=== PATIENT | female | born 1945 | race Caucasian/White ===

== ENCOUNTER 2019-03-18 21:56 | Emergency (ER) | payer MEDICARE, MEDICAID, SELFPAY ==
[2019-03-18 21:57] VITALS: BP 137/71; PULSE 78; RESP 13; TEMP 36.8; O2SAT 95; BMI 28.0
[2019-03-18 22:14] VITALS: RESP 16
--- NOTE | 2019-03-18 22:24 | ED.VIS.GEN ---
History of Present Illness Chief Complaint: Fall Informant: Patient Onset: Yesterday Context: Gradual Onset Timing: Continuous Current Severity: Moderate Maximum Severity: Moderate Narrative: The patient presents to the emergency department with facial bruising after fall. She states that yesterday, she was walking upper her basement stairs. She tripped and fell forward. She struck her forehead against the stair and she was wearing her glasses. She struck her nose and had some bleeding from the right naris. She states that overnight, the bleeding and bruising came out below her eyes. She denies headache, nausea, or visual change. She is not on anticoagulants. The only medication that she takes is thyroid replacement. She was just concerned with the bruising and thought that she should be evaluated. Prior similar symptoms: No Recent Illness/Hospitalization: No Past Medical History - Allergies and Home Meds Allergies/Adverse Reactions: Allergies acetaminophen [From Midol] Adverse Reaction (Verified 03/18/19 22:02) Other buspirone HCl [From BuSpar] Adverse Reaction (Verified 03/18/19 22:02) Other epinephrine Adverse Reaction (Verified 03/18/19 22:02) Other menthol Adverse Reaction (Verified 03/18/19 22:02) Other pamabrom [From Midol] Adverse Reaction (Verified 03/18/19 22:02) Other pyrilamine maleate [From Midol] Adverse Reaction (Verified 03/18/19 22:02) Other Primary Care Physician: Verito Ayoub PA [Primary Care Provider] - Prior records reviewed: Yes Past Medical History: - - Hypothyroid Surgical History: no surgical history Smoking Status: Never smoker Review of Systems General: Denies: Chills, Fever, Sweats Eyes: Denies: Visual changes - bilaterally, Diplopia ENT: Denies: Rhinorrhea, Sore throat Cardiovascular: Denies: Chest pain, Palpitations Respiratory: Denies: Dyspnea, Cough, Dyspnea on exertion Gastrointestinal: Denies: Abdominal pain, Nausea, Vomiting, Diarrhea, Melena, Hematochezia Genitourinary: Denies: Dysuria, Hematuria, Frequency Musculoskeletal: Denies: Back pain, Extremity Pain Skin: Denies: Rash, Wounds Neurological: Denies: Headache, Weakness, Numbness Physical Exam Vital Signs/Narrative: Vital Signs Temp Pulse Resp BP Pulse Ox 03/18/19 22:14 16 03/18/19 21:57 98.2 F 78 13 137/71 H 95 Inital Vital Signs reviewed: Yes General: Well nourished, Well developed, No Acute Distress Head: Normocephalic, Atraumatic Eyes: Perrl, EOMI ENT: Moist mucous membranes, No rhinorrhea, - - There is contusion over the bridge of the nose but no obvious deformity. There is tenderness to palpation. No nasal septal hematoma. Midface stable. Neck: Supple, Nontender Cardiovascular: Regular rate, Regular rhythm, No murmurs Respiratory: No distress, CTA bilaterally, Chest nontender Abdomen: Soft, Nontender, Nondistended, Normal bowel sounds Back: Nontender, Normal Inspection Extremities: Nontender, No edema Skin: Normal color, No rash Neurological: Alert, Oriented x3, Cranial nerves II-XII grossly intact, Normal Strength, Normal Sensation Psychological: Normal affect, Normal Mood Diagnostic/Tx/Re-eval - Medical Decision Making The patient has no nasal septal hematoma. She has clinical evidence of a nasal fracture. I did obtain plain films which showed no evidence of displaced fracture. The patient was started on Afrin and will continue Tylenol. She will be discharged home. Impression 1. Closed nasal fracture ED Disposition - Plan for ED Patient: Disposition: Home or Assisted Living Instructions: FRACTURE, Nose (with X-Ray) Referrals: Verito Ayoub PA [Primary Care Provider] -
--- NOTE | 2019-03-18 22:25 | RAD_ITS ---
STUDY: X-RAY - NASAL BONES REASON FOR EXAM: Female, 73 years old. Fall and bruising TECHNIQUE: 3 view(s) of the nasal bones. COMPARISON: None. FINDINGS: Normal nasal bones. Normal anterior nasal spine. There is no demonstrated soft tissue swelling. The remaining visualized osseous structures are normal. Normal visualized paranasal sinuses. RAD/Nasal Bones min 3 Views IMPRESSION: No acute osseous injury is evident. Electronically Signed: Chavez Munoz MD at 23:02 EDT Tel , Service support ,
[2019-03-18] MEDS: Oxymetazoline 0.05% 1 SPRAY SPRAY.BTL 2 SPRAY NASAL (23:17)
== END 2019-03-18 23:22 | disposition home or self-care (01) ==
LOC: ED 22:24
PROVIDERS: Emergency Provider Emergency Medicine; Family Provider Physician Assistant; PCP Physician Assistant
DX: S02.2XXA Fracture of nasal bones, initial encounter for closed fracture (principal); W10.9XXA Fall (on) (from) unspecified stairs and steps, initial encounter; Y93.01 Activity, walking, marching and hiking; Y92.008 Other place in unspecified non-institutional (private) residence as the place of occurrence of the external cause; E03.9 Hypothyroidism, unspecified; Z79.899 Other long term (current) drug therapy
CPT/HCPCS: 70160; 99282

== ENCOUNTER → 2021-03-07 09:51 | Outpatient (CLI) | payer MEDICARE, MEDICAID, SELFPAY ==
--- NOTE | 2021-03-07 09:55 | VDLE_ITS ---
Reason For Study: HX DVT RIGHT LEFT GSV is normal. GSV is normal. CFV is compressible, spontaneous, phasic, CFV is compressible, spontaneous, phasic, competent and demonstrates normal competent, and demonstrates normal augmentation. augmentation. FV is compressible, spontaneous, phasic, FV is compressible, spontaneous, phasic, competent and demonstrates normal competent and demonstrates normal augmentation. augmentation. POP V is compressible, spontaneous, phasic, POP V is compressible, spontaneous, phasic, competent and demonstrates normal competent and demonstrates normal augmentation. augmentation. T/P Trunk is compressible. T/P Trunk is compressible. PTV is compressible. PTV is compressible. RT PerV is compressible. LT PerV is compressible. Dilated Accessory SV with Rouleaux flow LT Gastroc V is Dilated and NONCOMPRESSIBLE noted- located at SFJ measuring 2.76 x 2.59 with echoes consistent with possible acute on cm . chronic DVT. Procedure Exam performed in department. A preliminary report was called and/or faxed to Dr Mead's office. VL/Venous Duplex US - Sincere Extrem Interpretation Summary No obvious acute DVT. 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 Large right SFJ into A SV at 27mm and rouleaux flow. Ordering Physician: Nav Mead Referring Physician: BRET JULIEN Performed By: Reva Goldsmith, CONNOR, RVT
== END ==
PROVIDERS: PCP Physician Assistant; Referring Provider Surgery Vascular Surgery; Visit Provider Surgery Vascular Surgery
DX: I83.93 Asymptomatic varicose veins of bilateral lower extremities (principal); Z86.718 Personal history of other venous thrombosis and embolism; M79.609 Pain in unspecified limb; M79.89 Other specified soft tissue disorders; R22.2 Localized swelling, mass and lump, trunk
CPT/HCPCS: 93970

== ENCOUNTER 2021-08-24 02:28 | Emergency (ER) | payer MEDICARE, MEDICAID, SELFPAY ==
[2021-08-24 02:28] VITALS: BP 173/70
[2021-08-24 02:29] VITALS: BP 178/77; PULSE 81; RESP 18; TEMP 36.3; O2SAT 98; BMI 28.6
--- NOTE | 2021-08-24 02:40 | EX.ED.DYSGE1 ---
HPI History of Present Illness Chief Complaint: Ear Problem Detail of Chief Complaint: Bleeding from right ear Informant: patient Narrative Narrative: Patient presents to the emergency department complaint of bleeding from the right ear. Patient states that she was asleep and was awoken with a pain in the right ear and then she felt a pop and then noted blood from the right ear. Patient states that she has had kind of some sinus congestion and drainage on August 22 and . She has had a little bit decreased hearing in the right ear for about a week. She denies any fevers or chills or sweats. She denies having significant pain prior to this episode tonight. [facility] Medical History (Updated 08/24/21 @ 02:[address] Franchesca Naranjo, DO) Hypothyroidism Home Medications amoxicillin-pot clavulanate 875 mg PO Q12H #20 tablet 08/24/21 [Rx Last Taken Unknown] ciprofloxacin-dexamethasone [Ciprodex] 4 drp EACH EAR BID 7 Days ml 08/24/21 [Rx Last Taken Unknown] levothyroxine 50 mcg PO DAILY 08/24/21 [History Last Taken Unknown] Allergy/AdvReac Type Severity Reaction Status Date / Time acetaminophen [From Midol] AdvReac Other Verified 03/18/19 22:02 buspirone HCl [From BuSpar] AdvReac Other Verified 03/18/19 22:02 epinephrine AdvReac Other Verified 03/18/19 22:02 ibuprofen AdvReac Other Verified 08/24/21 02:31 menthol AdvReac Other Verified 03/18/19 22:02 pamabrom [From Midol] AdvReac Other Verified 03/18/19 22:02 pyrilamine maleate AdvReac Other Verified 03/18/19 22:02 [From Midol] IV DYE Allergy PT UNSURE Uncoded 08/24/21 02:37 OF REACTION Social History Smoking Status: Never smoker ROS ROS ED Constitutional Constitutional ED: Reports systems reviewed and no addt'l complaints, except as documented; Denies body ache(s), change in weight or chills Eyes Eyes: Denies acute decrease in peripheral vision, change in vision, double vision or loss of vision ENT ENT ED: Reports none, ear pain and other Details: Blood draining from right ear canal ; Denies lip swelling, loss taste/smell, neck pain, otalgia or sore throat Cardiovascular Cardiovascular: Reports none; Denies abdominal pain, chest pain with activity, leg edema, lightheadedness, palpitations, rapid heart rate or syncope Respiratory/Chest Respiratory/Chest: Reports none; Denies change in mental status, dry cough, dyspnea, hemoptysis, shortness of breath at rest or shortness of breath with exertion Gastrointestinal Gastrointestinal: Reports none; Denies abdominal pain, change in stool character, diarrhea, hematemesis, hematochezia, melena, rectal bleeding or vomiting Genitourinary Genitourinary ED: Reports none; Denies abdominal discomfort, anuria, dysuria, genital pain or polyuria Musculoskeletal Musculoskeletal: Reports none; Denies arthralgias, back pain, difficulty walking, extremity pain, muscle weakness or myalgias Integumentary Reports none; Denies abscess or rash Neurologic Neurologic: Reports none; Denies abnormal gait, confusion, focal weakness, frequent falls, headache(s), loss of vision, numbness, paresthesias, radicular pain, vertigo or weakness Psychiatric Psychiatric: Reports systems reviewed and no addt'l complaints, except as documented and none; Denies behavioral changes, confusion, difficulty concentrating, hallucinations, suicidal ideation, tactile hallucinations or visual hallucinations Endocrine Endocrinology: Denies none, cold intolerance, excessive sweating, fatigue or heat intolerance Hematologic/Lymphatic Hematologic/Lymphatic: Reports none; Denies anemia, easy bleeding or easy bruising Allergic/Immunologic Allergic/Immunologic ED: Denies as per HPI, none, lip swelling, mouth swelling, throat swelling, tongue swelling or hives EXAM Physical Exam Const Vital Signs: 08/24/21 02:28 08/24/21 02:29 Temperature 97.4 F L Temperature Source Temporal Pulse Rate 81 Respiratory Rate 18 Blood Pressure 173/70 H 178/77 H Blood Pressure Mean 104 110 Pulse Ox 98 Oxygen Delivery Method Room Air Positive well nourished and well developed General Appearance ED: well developed and NAD HEENT Reports TM's clear and moist mucous membranes HEENT Narrative: Evaluation of the right ear canal does reveal some dried blood within the ear canal and along the lower half of the tympanic membrane. There appears to be some blood behind the tympanic membrane. I do not have insufflation available but I suspect likely rupture of the tympanic membrane. normocephalic and atraumatic; Negative for trauma or tenderness Tympanic Membrane ED: Yes TM's clear Eyes PERRL and EOMs intact bilaterally General Eye ED: Negative for pale conjunctiva or scleral icterus Neck no lymphadenopathy, supple and no JVD General: Negative for tenderness Chest Wall inspection of chest normal and palpation of chest normal Chest: Negative for tenderness Resp normal respiratory effort and clear to auscultation bilaterally Effort and Inspection: Negative for respiratory distress or pain with movement Auscultation: Negative for rhonchi, wheezes or diminished lung sounds Cardio regular rate, regular rhythm, S1 normal heart sound, S2 normal heart sound and no murmurs Peripheral Pulses: pulses 2+ throughout GI normal to inspection, nondistended, normoactive bowel sounds, soft to palpation, non-tender, non-distended and no masses Back/Spine no CVA tenderness and no thoracic nor lumbar tenderness Extremity normal to inspection General Extremety ED: Negative for edema General Extremity: Negative for edema Neuro oriented x3, CN's II-XII intact bilaterally, no sensory deficits noted and gait normal Sensorium / Orientation: awake, alert, oriented to person, oriented to place and oriented to time Motor Exam: strength 5/5 throughout and strength abnormal Psych mental status grossly normal Skin no rashes or lesions noted and no wounds MDM MDM MDM Narrative Medical decision making narrative: Patient presents with bleeding from the right ear which I suspect is likely related to a rupture of tympanic membrane. Patient will be started on Augmentin and Ciprodex drops and advised to follow-up with ENT within next 3 to 5 days. Discharge Plan Triage Chief Complaint: Ear Problem ED Provider: Franchesca Naranjo Dx/Rx/DC Orders Clinical Impression: Ruptured eardrum Instructions: ED PERFORATED TM Infected [Adult] Prescriptions: New amoxicillin-pot clavulanate [amoxicillin-pot clavulanate] 875 MG tablet 875 mg PO Q12H Qty: 20 RF: 0 ciprofloxacin-dexamethasone [Ciprodex] 0.3-0.1 % drops,suspension 4 drp EACH EAR BID 7 Days RF: 0 No Action levothyroxine 50 mcg Capsule 50 mcg PO DAILY RF: 0 Primary Care Provider: Verito Ayoub Referrals: Joe Peres MD [STAFF PHYSICIAN] - 3-5 Days Verito Ayoub PA [Primary Care Provider] - Disposition Disposition: Home, Self Care
[2021-08-24] MEDS: Amox/Clavulanate 875 MG Tablet PO (02:45)
[2021-08-24 02:59] VITALS: BP 168/70; PULSE 82; RESP 18; O2SAT 96
== END 2021-08-24 03:00 | disposition home or self-care (01) ==
LOC: ED 02:53
PROVIDERS: Emergency Provider Emergency Medicine; PCP Physician Assistant; Visit Provider Emergency Medicine
DX: H72.91 Unspecified perforation of tympanic membrane, right ear (principal); E03.9 Hypothyroidism, unspecified; Z79.899 Other long term (current) drug therapy
CPT/HCPCS: 99283